=== PATIENT | female | born 1935 | race Caucasian/White ===

== ENCOUNTER → 2017-10-21 | Outpatient (CLI) | payer OTHER | LOC: FIMAGING 09:02 | PROVIDERS: ATTEND Internal Medicine | DX: M25.562 Pain in left knee (principal) ==

== ENCOUNTER 2018-01-08 21:35 | Emergency (ER) | payer OTHER ==
--- NOTE | 2018-01-08 22:22 | EDPHY ---
H & P Time Seen by Provider: 01/08/18 21:54 HPI/ROS: CHIEF COMPLAINT: Left arm redness HISTORY OF PRESENT ILLNESS: The patient is an 82-year-old female who presents emergency department with left arm redness. She states that she has scratched her arm a few days ago and then placed triple antibiotic cream on it. Her arm now has increased redness. Mild discomfort. She has used triple antibiotic cream before. She has no significant rash or redness. No fevers or chills. REVIEW OF SYSTEMS: 10 systems were reveiwed and are negative with the exception of the elements mentioned in the history of present illness. Past Medical/Surgical History: Includes hypertension Smoking Status: Never smoked Physical Exam: Vitals noted. Hypertensive GENERAL: Well-appearing, in no acute distress, alert. HEENT: Eyes normal to inspection, normal pharynx, no signs of dehydration. NECK: Normal, supple. RESPIRATORY: Clear to auscultation bilaterally, no rales, rhonchi or wheezing. CVS: Regular rate and rhythm, no rubs, murmurs, or gallops. ABDOMEN: Soft, nontender, nondistended, no organomegaly. BACK: Normal to inspection, no CVA tenderness. SKIN: Normal color, warm, dry. No pallor. See extremity exam. EXTREMITIES: The patient has mild erythema over the left proximal forearm. There is a small abrasion. No discharge. No streaking up the arm. No significant warmth. No palpable cords. No pedal edema, no calf tenderness, no Homans sign, no joint swelling. NEURO/PSYCH: Alert and oriented, normal mood and affect, normal motor sensory exam. No obvious cranial nerve deficit. Constitutional: Initial Vital Signs Temperature (C) 36.7 C 01/08/18 21:42 Heart Rate 70 01/08/18 21:42 Respiratory Rate 20 01/08/18 21:42 Blood Pressure 184/73 H 01/08/18 21:42 O2 Sat (%) 95 01/08/18 21:42 O2 Delivery Mode Room Air Allergies/Adverse Reactions: No Known Allergies Allergy (Unverified 01/08/18 21:41) Home Medications: Medication Instructions Recorded Calcium Carbonate [Tums 500MG (*)] 500 mg PO TID PRN #90 tab.chew 02/11/16 Citalopram [CeleXA 20 MG] 20 mg PO DAILY #30 tab 10/25/16 Melatonin [Melatonin 3 MG (*)] 3 mg PO HS #30 tab 02/11/16 Multivitamins W-Minerals [Thera M 1 each PO DAILY #0 tab 02/11/16 Plus Tablet (*)] Pantoprazole Sodium [Protonix 40mg 40 mg PO DAILY #30 tab 02/11/16 (*)] traZODone [traZODONE 50MG (*)] 25 mg PO HS #30 tab 02/11/16 Cephalexin [Keflex (*)] 500 mg PO QID 5 Days cap 01/08/18 Medical Decision Making ED Course/Re-evaluation: In the emergency department I discussed possible etiologies with the patient. I answered all her questions. I recommended that she start using triple antibiotic ointment and use bacitracin. She was been given a prescription of Keflex. She was given a take-home pack and a prescription. She is given warnings prior to leaving. Differential Diagnosis: My differential includes but is not limited to cellulitis, abscess, allergic reaction, bacteremia, sepsis, DVT, arterial occlusion Departure - Departure Disposition: Home, Routine, Self-Care Clinical Impression: Cellulitis Qualifiers: Site of cellulitis: extremity Site of cellulitis of extremity: upper extremity Laterality: left Qualified Code(s): L03.114 - Cellulitis of left upper limb Condition: Good Instructions: Cellulitis (ED) Additional Instructions: Return with increasing redness, swelling, fever, chills or any other concerns. In the future, discontinue triple antibiotic use. Use bacitracin instead. Take your entire course of antibiotics. Follow up with your primary care physician. If they are unavailable, you been given contact information with Dr. Diana Gallardo. Referrals: Diana Gallardo MD [[facility] Primary Care Provider] - As per Instructions Prescriptions: Cephalexin [Keflex (*)] 500 mg PO QID 5 Days cap
[2018-01-08] MEDS ORDERED: CEPHALEXIN 500MG PREPACK#4 BTL TAKEHOME ONE (22:25)
[2018-01-09 00:47] VITALS: BP 189/72
== END 2018-01-09 00:45 | disposition home or self-care (01) ==
LOC: EDUNIT#
DX: L03.114 Cellulitis of left upper limb (principal)

== ENCOUNTER 2018-04-14 19:24 | Emergency (ER) | payer OTHER ==
[2018-04-14] MEDS ORDERED: RANITIDINE HCL 150 MG/10 ML UDCUP PO ONE ×2 (20:08→20:21)
[2018-04-14] MEDS ORDERED: diphenhydrAMINE 12.5 MG/5 ML UDCUP PO ONE (20:08)
[2018-04-14] MEDS ORDERED: diphenhydrAMINE 25 MG CAP PO ONE (20:21)
--- NOTE | 2018-04-14 20:24 | EDPHY ---
H & P Smoking Status: Never smoked Time Seen by Provider: 04/14/18 19:52 HPI/ROS: CLINICAL IMPRESSION: Contact dermatitis ASSESSMENT/PLAN: 83-year-old female presents to the emergency department with complaints of a pureed ache rash to both wrists and forearms for 2-3 weeks, worsened today after using a topical steroid cream. Patient has no open wounds or secondary signs of cellulitis. No petechiae or purpura. Intraoral or ocular involvement. No associated shortness of breath, wheezing or respiratory distress. She does have a mild rash to the face as well. Patient was given Benadryl and ranitidine, I encouraged follow-up with primary care in Dermatology , stop using topical steroid cream, warning signs return to ED sooner outlined in discharge papers. DIFFERENTIAL DX: Differential includes but not limited to contact dermatitis, psoriasis, eczema , dyshidrotic eczema, allergic reaction CHIEF COMPLAINT: Rash to both arms HPI: 83-year-old female presents to the emergency department by ambulance for evaluation of a pruritic rash to both wrists and forearms for the last 2-3 weeks. Patient was prescribed a steroid ointment by her primary care which she started using today and noticed that the rash worsened. No complaints of rash or swelling in the mouth, no shortness of breath or difficulty breathing, no ocular involvement. No history of anaphylaxis severe allergic reaction. No new medications, lotions, detergents, or perfumes. No rash to the palms or soles of the feet. PAST MEDICAL HISTORY: See triage summary and nurse notes for addition applicable history Pertinent Past Surgical History: None reported Family History: Noncontributory Social History: No exposure to chemicals or harsh detergents REVIEW OF SYSTEMS: A full 10 point review of systems was negative except for those mentioned in HPI. PHYSICAL EXAM: General Appearance: Alert, oriented, appropriate, cooperative, NAD, well hydrated, non-toxic appearing, VSS, no hypoxia. HEENT: Oropharynx clear is no erythema or exudates, no tonsillar hypertrophy or asymmetry. No intraoral laceration or lesions Dentition without abnormality. Eyes: PERRLA, no acute vision change, nystagmus, swelling, discharge, pain or photosensitivity. Conjunctiva pink, no pallor or injection Neck: Supple, nontender, no lymphadenopathy, no midline pain, FROM, no meningismus. Respiratory: There are no retractions, lungs are clear to auscultation. Cardiac: Regular rate and rhythm, no murmurs or gallops. Skin: Slightly raised, erythematous, blanchable, macular rash to bilateral dorsal wrist extending up the dorsum of both forearms extending mildly to the ventral surface of the forearms. No open blisters although patient does have very dry skin. No bleeding. No petechiae or purpura. Very mild macular rash to both cheeks and perioral region MEDICAL DECISION MAKING: Patient was seen independently. Secondary supervising physician at time of evaluation was: Dr. Santiago . Diagnosis: Contact dermatitis. New, requires workup Summary: See Assessment and Plan for summary of ED visit Patient Progress: Stable. (Froilan Herrmann) Constitutional: Initial Vital Signs Temperature (C) 36.7 C 04/14/18 19:29 Heart Rate 76 04/14/18 19:29 Respiratory Rate 16 04/14/18 19:29 Blood Pressure 182/73 H 04/14/18 19:29 O2 Sat (%) 97 04/14/18 19:29 O2 Delivery Mode Room Air Allergies/Adverse Reactions: No Known Allergies Allergy (Unverified 01/08/18 21:41) Home Medications: Medication Instructions Recorded Calcium Carbonate [Tums 500MG (*)] 500 mg PO TID PRN #90 tab.chew 02/11/16 Citalopram [CeleXA 20 MG] 20 mg PO DAILY #30 tab 02/11/16 Melatonin [Melatonin 3 MG (*)] 3 mg PO HS #30 tab 02/11/16 Multivitamins W-Minerals [Thera M 1 each PO DAILY #0 tab 02/11/16 Plus Tablet (*)] Pantoprazole Sodium [Protonix 40mg 40 mg PO DAILY #30 tab 02/11/16 (*)] traZODone [traZODONE 50MG (*)] 25 mg PO HS #30 tab 02/11/16 Cephalexin [Keflex (*)] 500 mg PO QID 5 Days cap 01/08/18 MDM/Departure - MDM Medications Given: Discontinued Medications Diphenhydramine HCl (Benadryl) 50 mg PO EDNOW ONE Stop: 04/14/18 20: Last Admin: 04/14/18 20: Dose: 50 mg Ranitidine HCl (Zantac) 150 mg PO EDNOW ONE Stop: 04/14/18 20: Last Admin: 04/14/18 20:50 Dose: 150 mg - Depart Disposition: Home, Routine, Self-Care Clinical Impression: Contact dermatitis Condition: Good Instructions: Contact Dermatitis (ED) Additional Instructions: DISCHARGE INSTRUCTIONS FROM YOUR DOCTOR Thank you for visiting our emergency department today. Please keep in mind that discharge from the emergency department does not mean that there is nothing wrong - it simply means that we have not identified an emergency condition that requires further evaluation or treatment in the hospital. You should always plan to follow up with primary care for re-evaluation of your condition in the next 2-3 days. If you have been referred to a specialist, please call as soon as possible (today or tomorrow) to schedule your follow up appointment at the appropriate time. WE ARE TREATING YOU FOR CONTACT DERMATITIS WITH BENADRYL AND RANITIDINE. PLEASE TAKE 50 MG OF BENADRYL AT NIGHT, 150 MG OF RANITIDINE TWICE DAILY, AND PRICILLA DURING THE DAY. PLEASE SEE HER PRIMARY CARE DOCTOR TOMORROW TO RECHECK. DO NOT APPLY THE TOPICAL OINTMENT THAT YOU WERE ORIGINALLY PRESCRIBED. AVOID HOT SHOWERS THIS CAN WORSEN ITCHING. USE AQUAPHOR OINTMENT TO HELP WITH DRY SKIN. RETURN TO THE EMERGENCY DEPARTMENT FOR SPREADING RASH, SHORTNESS OF BREATH, COUGH, WHEEZING, FEVER OR ANY OTHER CONCERNS. People present with illnesses and injuries in different ways, and it is always possible that we have missed something. You may always return for re-evaluation if symptoms worsen or if they are not improving or if you develop new/different symptoms. Again, thank you for choosing our emergency department. We hope that you feel better. Referrals: Kaylen Robles MD [Primary Care Provider] - 1 day without fail
[2018-04-14 20:56] VITALS: BP 179/85
== END 2018-04-14 20:40 | disposition home or self-care (01) ==
LOC: EDUNIT#
DX: L23.89 Allergic contact dermatitis due to other agents (principal); T38.0X5A Adverse effect of glucocorticoids and synthetic analogues, initial encounter